=== PATIENT | female | born 2000 | race Caucasian/White ===

== ENCOUNTER → 2021-03-13 | Outpatient (CLI) | payer OTHER ==
--- NOTE | 2021-03-13 14:11 | XR ---
EXAMINATION TYPE: XR foot complete LT DATE OF EXAM: 03/13/2021 Comparison: None Clinical History: 20-year-old female M21.619 BUNION OF UNSPECIFIED FOOT Findings: No acute fracture, subluxation, dislocation. No soft tissue calcification. No periostitis or osteolys is. Joint spaces are maintained. Impression: No acute osseous abnormality seen.
[2021-03-13 21:05] LABS: T4, Free (Free Thyroxine) 1.13 ng/dL (0.830-1.430)
== END | disposition home or self-care (01) ==
LOC: LABWHC1 11:06
PROVIDERS: ATTEND Student in an Organized Health Care Education/Training Program
DX: M21.619 Bunion of unspecified foot (principal); Z83.49 Family history of other endocrine, nutritional and metabolic diseases
CPT/HCPCS: 36415; 84439; 84443